=== PATIENT | male | born 1990 | race Hispanic/Latino ===

== ENCOUNTER → 2024-09-22 | Outpatient (CLI) | payer BC ==
--- NOTE | 2024-09-22 11:30 | HMCIMG ---
CT ABDOMEN/PELVIS W/O CONTRAST HISTORY: Diverticulitis COMPARISON: None TECHNIQUE: Multiple sequential axial images of the abdomen and pelvis were obtained from the dome of the diaphragm through symphysis pubis. Patient was not given contrast through intravenous route. Oral contrast was not given. FINDINGS: No pleural effusion is seen bilaterally. There is no evidence of parenchymal disease or pulmonary nodule of the visualized lower lungs. Degenerative changes of the thoracolumbar spine are present. The heart is not enlarged. Liver is enlarged with fatty changes measuring 19 cm. The liver, spleen, adrenal glands and pancreas are unremarkable. There is no evidence of hydronephrosis bilaterally. No evidence of renal stone is seen. Fecal material is seen in the colon. There are normal size retroperitoneal and mesenteric lymph nodes. No ascites is seen. No CT evidence of acute appendicitis is seen. Clinical correlation is recommended. Radiopaque densities are seen in the spermatic cord regions bilaterally. Pelvic sidewalls are symmetric bilaterally. Bladder is well distended without wall thickening. IMPRESSION: 1. No hydronephrosis is seen. No ascites is seen. Fecal material in the colon. CT was performed with one or more following dose reduction techniques: automated exposure control, adjustment of the mA and kv according to patient's size, or use of a iterative reconstruction technique.
== END | disposition home or self-care (01) ==
LOC: RAH 09:50
PROVIDERS: ATTEND Internal Medicine
DX: K57.92 Diverticulitis of intestine, part unspecified, without perforation or abscess without bleeding (principal); M47.815 Spondylosis without myelopathy or radiculopathy, thoracolumbar region; K76.0 Fatty (change of) liver, not elsewhere classified
CPT/HCPCS: 74176